=== PATIENT | female | born 1955 | race Native Hawaiian/Other Pacific Islander ===

== ENCOUNTER 2020-05-06 11:30 | Outpatient (CLI) | payer OTHER ==
[2020-05-06 18:03] LABS: POTASSIUM 3.7 mmol/L (3.6-5.2)
== END 2020-05-06 20:25 | disposition home or self-care (01) ==
LOC: LAB 11:30
PROVIDERS: Internal Medicine Infectious Disease
DX: M86.18 Other acute osteomyelitis, other site (principal)
CPT/HCPCS: 36415; 80053; 80202